=== PATIENT | female | born 1990 | race African-American/Black ===

== ENCOUNTER 2017-05-11 22:39 | Emergency (ER) | payer OTHER, BC ==
[~2017-05-11] VITALS: Ht 170.2 cm; Wt 74.6 kg
[2017-05-11 23:04] VITALS: BP 104/68
== END 2017-05-12 03:30 | disposition left against medical advice (07) ==
LOC: ER 22:39
DX: Z53.21 Procedure and treatment not carried out due to patient leaving prior to being seen by health care provider (principal)

== ENCOUNTER 2017-05-12 16:16 | Emergency (ER) | payer OTHER, BC ==
[~2017-05-12] VITALS: Ht 170.2 cm; Wt 74.0 kg
[2017-05-12 16:59] VITALS: BP 103/64
== END 2017-05-12 19:30 | disposition home or self-care (01) ==
LOC: ER 16:16
DX: R51 Headache (principal); X58.XXXA Exposure to other specified factors, initial encounter; Y93.23 Activity, snow (alpine) (downhill) skiing, snowboarding, sledding, tobogganing and snow tubing; Y92.89 Other specified places as the place of occurrence of the external cause; Y99.8 Other external cause status
CPT/HCPCS: 99281